=== PATIENT | male | born 1945 | race Caucasian/White ===

== ENCOUNTER → 2019-07-01 | Outpatient (CLI) | payer MEDICARE, BC ==
--- NOTE | 2019-07-01 08:52 | Diagnostic Imaging Report ---
EXAMINATION: Chest 2 view HISTORY: PNEUMONIA DUE TO INFECTIOUS ORGANISM COMPARISON: None available. FINDINGS: Coarse interstitial opacities are seen in the perihilar and basilar regions. No large pleural effusion or pneumothorax is seen. The cardiac silhouette is enlarged. No acute osseous abnormality is seen. IMPRESSION: 1. Cardiomegaly. 2. Coarse interstitial opacities in the perihilar and basilar regions. These may represent chronic fibrotic changes. Superimposed infection or edema may also be present. Dictated by: Dictated on workstation # [id number]
== END ==
LOC: RAD FS 08:35
PROVIDERS: ATTEND Family Medicine
DX: J18.9 Pneumonia, unspecified organism (principal); I51.7 Cardiomegaly
CPT/HCPCS: 71046